=== PATIENT | male | born 1995 | race Caucasian/White ===

== ENCOUNTER 2021-09-07 13:21 | Outpatient (CLI) | payer OTHER ==
[2021-09-07 21:09] LABS: CHLAMYDIA TRACHOMATIS DNA NEGATIVE (NEGATIVE); NEISSERIA GONORRHOEAE DNA NEGATIVE (NEGATIVE)
[2021-09-09 16:31] LABS: HIV AG/AB 4TH GEN NON-REACTIVE (NON-REACTIVE)
[2021-09-09 18:57] LABS: HEPATITIS C ANTIBODY NON-REACTIVE (NON-REACTIVE)
[2021-09-10 13:51] LABS: HSV 1 IGG TYPE SPECIFIC AB <0.90 index; HSV 2 IGG TYPE SPECIFIC AB <0.90 index
== END 2021-09-07 23:59 | disposition home or self-care (01) ==
LOC: LAB.N 13:21
PROVIDERS: ATTEND Nurse Practitioner
DX: N48.9 Disorder of penis, unspecified (principal)
CPT/HCPCS: 81599; 86592; 86695; 86696; 86803; 87389; 87491; 87591; 87661